=== PATIENT | female | born 1975 | race Two or more races ===

== ENCOUNTER 2022-11-29 21:32 | Emergency (ER) | payer MEDICAID ==
[~2022-11-29] VITALS: Ht 152.4 cm; Wt 78.5 kg
[2022-11-29 22:46] VITALS: BP 130/91; TEMP 98.5; O2SAT 98
[2022-11-29] MEDS ORDERED: IBUP-1953 PO (23:35)
== END 2022-11-29 23:44 | disposition home or self-care (01) ==
LOC: ER 21:43
DX: S63.634A Sprain of interphalangeal joint of right ring finger, initial encounter (principal); I10 Essential (primary) hypertension; E11.9 Type 2 diabetes mellitus without complications; Z88.0 Allergy status to penicillin; X58.XXXA Exposure to other specified factors, initial encounter; Y93.89 Activity, other specified; Y92.89 Other specified places as the place of occurrence of the external cause; Y99.8 Other external cause status
CPT/HCPCS: 73140-TC